=== PATIENT | female | born 1995 | race Caucasian/White ===

== ENCOUNTER 2020-07-31 14:42 | Emergency (ER) | payer SELFPAY ==
[2020-07-31 15:14] VITALS: TEMP 96.8; O2SAT 98
[2020-07-31] MEDS: AZITHROMYCIN 250 MG TAB PO ONE (15:53)
--- NOTE | 2020-07-31 15:54 | RAD ---
EXAMINATION: Chest,1 View. HISTORY: 25 years Female. cough, mild sob. . . TECHNIQUE: XR CHEST 1 VIEW COMPARISON: None. FINDINGS: Severely limited Cardiac silhouette size is normal without vascular congestion. There is no visible pulmonary consolidation. No radiographically visible pneumothorax. No definite evidence of pleural effusion. No visible acute displaced fracture in the regional skeleton. IMPRESSION: No acute cardiopulmonary disease in the visualized chest, severely limited by body habitus. Electronically signed by: Israel Ambrose MD 07/31/2020 3:53 PM [facility]
[2020-07-31 16:12] VITALS: BP 138/89
--- NOTE | 2020-07-31 16:13 | ED.PDOC ---
History of Present Illness - General Chief Complaint: Respiratory Problem Stated Complaint: cough, body aches, chills, sore throat Time Seen by Provider: 07/31/20 14:50 Source: patient Exam Limitations: no limitations - History of Present Illness Initial Comments: The patient is a 25-year-old female presented emergency room secondary to cough and sore throat as well as some body aches for last couple of days. No nausea or vomiting though her partner has had some. No diarrhea. Questionable fevers. Mild shortness of breath with exertion. Unknown coronavirus exposure. Timing/Duration: other - 3 days Severity: moderate Improving Factors: nothing Worsening Factors: nothing Associated Symptoms: cough, fever/chills, malaise, shortness of breath Allergies/Adverse Reactions: Allergies Codeine Allergy (Verified 07/31/20 15:04) Penicillins Allergy (Verified 07/31/20 15:04) Tetanus Toxoids Allergy (Verified 07/31/20 15:04) Home Medications: Ambulatory Orders Azithromycin 500 mg PO DAILY #7 tab 07/31/20 Hydroxyzine HCl 50 mg PO 07/31/20 Propranolol HCl 60 mg PO 07/31/20 Sertraline HCl [Zoloft] 100 mg PO 07/31/20 Review of Systems - Review of Systems Constitutional: States: fever, malaise EENTM: States: nose congestion, throat pain Respiratory: States: cough, short of breath Cardiology: States: no symptoms reported Gastrointestinal/Abdominal: States: no symptoms reported Genitourinary: States: no symptoms reported Musculoskeletal: States: no symptoms reported Skin: States: no symptoms reported Neurological: States: no symptoms reported Endocrine: States: no symptoms reported All other Systems: No Change from Baseline Past Medical History (General) - Patient Medical History Hx Seizures: No Hx Stroke: No Hx Dementia: No Hx Asthma: Yes Hx of COPD: No Hx Cardiac Disorders: No Hx Congestive Heart Failure: No Hx Pacemaker: No Hx Hypertension: Yes Hx Thyroid Disease: No Hx Diabetes: No Hx Gastroesophageal Reflux: No Hx Renal Disease: No Hx Cancer: No Hx of HIV: No Hx Hepatitis C: No Hx MRSA: No Surgical History: cholecystectomy, tonsillectomy - Vaccination History Hx Tetanus, Diphtheria Vaccination: No Hx Influenza Vaccination: No Hx Pneumococcal Vaccination: No - Social History Hx Tobacco Use: Yes Hx Alcohol Use: No Family Medical History - Family History Mother Family History: Unknown Living Status: Unknown Physical Exam - Physical Exam General Appearance: Alert, Comfortable, No apparent distress Eye Exam: bilateral normal Ears, Nose, Throat: hearing grossly normal, nasal congestion, pharyngeal erythema Neck: full range of motion, supple Respiratory: lungs clear, normal breath sounds, no respiratory distress, no accessory muscle use Cardiovascular/Chest: normal peripheral pulses, regular rate, rhythm, no edema Peripheral Pulses: radial,right: 2+, radial,left: 2+ Gastrointestinal/Abdominal: non tender, soft Rectal Exam: deferred Back Exam: no CVA tenderness, no vertebral tenderness Extremity: non-tender, normal inspection, no pedal edema, normal capillary refill Neurologic: curtain hemmer automatic II-XII nml as tested, alert, normal mood/affect, oriented x 3 Skin Exam: normal color Comments: Vital Signs - 24 hr 07/31/20 07/31/20 14:51 15:08 Temperature 96.8 F L Pulse Rate [ 74 Right Radial] Respiratory 20 20 Rate Blood Pressure 125/97 [Left Arm] O2 Sat by Pulse 98 Oximetry Progress - Results/Orders Results/Orders: The patient is a 25-year-old female presented emergency room secondary to URI symptoms and sore throat. She did test positive for strep throat and will be treated with a azithromycin secondary to penicillin allergy. I believe she likely has a viral upper respiratory tract infection. She has tested negative for coronavirus and flu here today. She is to keep her self well-hydrated. Motrin or Tylenol can be used to reduce symptoms as well. No evidence of hypoxia. Chest x-ray shows no definitive pathology. The patient will likely have symptoms for another 3 to 4 days. ER warnings are given for any significant worsening. [email or web address] [id number] Laboratory Tests 07/31/20 07/31/20 15:16 15:27 POC Glucose 98 Group A Strep Rapid Positive H Rapid flu was negative. Rapid coronavirus was negative. Chest x-ray showed there is no definitive pathology however limited by body habitus. - EKG/XRAY/CT CT Ordered: No CT Interpretation Call Back: No Departure - Departure Clinical Impression: Viral URI, Strep throat Disposition: Discharge to Home or Self Care Condition: Fair Departure Forms: ED Discharge - Pt. Copy, Patient Portal Self Enrollment Instructions: Sore Throat, Adult (DC), Viral Upper Respiratory Infection, Adult (DC) Diet: regular diet Activity: increase activity as tolerated Prescriptions: Azithromycin 500 mg PO DAILY #7 tab Home Medications: Ambulatory Orders Azithromycin 500 mg PO DAILY #7 tab 07/31/20 Hydroxyzine HCl 50 mg PO 07/31/20 Propranolol HCl 60 mg PO 07/31/20 Sertraline HCl [Zoloft] 100 mg PO 07/31/20 Additional Instructions: The patient is a 25-year-old female presented emergency room secondary to URI symptoms and sore throat. She did test positive for strep throat and will be treated with a azithromycin secondary to penicillin allergy. I believe she likely has a viral upper respiratory tract infection. She has tested negative for coronavirus and flu here today. She is to keep her self well-hydrated. Motrin or Tylenol can be used to reduce symptoms as well. No evidence of hypoxia. Chest x-ray shows no definitive pathology. The patient will likely have symptoms for another 3 to 4 days. ER warnings are given for any significant worsening.
== END 2020-07-31 16:20 | disposition home or self-care (01) ==
LOC: ER 14:42
DX: J02.0 Streptococcal pharyngitis (principal); J06.9 Acute upper respiratory infection, unspecified; J45.909 Unspecified asthma, uncomplicated; I10 Essential (primary) hypertension; Z20.822 Contact with and (suspected) exposure to COVID-19; Z87.891 Personal history of nicotine dependence; Z88.5 Allergy status to narcotic agent; Z88.0 Allergy status to penicillin; Z88.7 Allergy status to serum and vaccine
CPT/HCPCS: 36415; 71045; 82948; 87502; 87635; 87880; Q0144